=== PATIENT | female | born 1995 | race African-American/Black ===

== ENCOUNTER 2016-07-06 13:56 | Inpatient (IN) | payer OTHER ==
[~2016-07-06] VITALS: Ht 165.1 cm; Wt 65.3 kg
[2016-07-06] MEDS ORDERED: DULO30CA2 PO (14:36)
[2016-07-06] MEDS ORDERED: RIT5 PO (14:36)
[2016-07-06] MEDS ORDERED: QUET25TA PO (14:36)
[2016-07-06 16:21] LABS: BASOPHILS # (AUTO) 0.03 K/uL (0.00-0.20); BASOPHILS % (AUTO) 0.6 % (0.0-2.0); EOSINOPHILS # (AUTO) 0.06 K/uL (0.00-0.70); EOSINOPHILS % (AUTO) 1.24 % (1.0-6.0); LYMPHOCYTES # (AUTO) 2.2 K/uL (1.0-4.8); LYMPHOCYTES % (AUTO) 42.8 % (22.0-44.0); MEAN CORPUSCULAR HEMOGLOBIN 26.1 pg (26.0-34.0); MEAN CORPUSCULAR HGB CONC 32.6 G/dL (31.0-37.0); MEAN CORPUSCULAR VOLUME 80 fL (80-100); MONOCYTES # (AUTO) 0.2 K/uL (0.1-1.0); MONOCYTES % (AUTO) 4.8 % (2.0-9.0); NEUTROPHILS # (AUTO) 2.5 K/uL (1.8-7.7); NEUTROPHILS % (AUTO) 50.5 % (40.0-70.0); PLATELET COUNT (AUTO) 298 K/uL (150-450); RED BLOOD CELL COUNT(AUTO) 5.38 MIL/uL (4.00-5.20); RED CELL DISTRIBUTION WIDTH 14.5 % (11.5-14.5)
[2016-07-06 16:33] LABS: ANION GAP 15 mmol/L (8-16); CALCIUM, TOTAL 9.1 mg/dL (8.8-10.5); CARBON DIOXIDE 23 mmol/L (22-29); CHLORIDE 105 mmol/L (98-107); CREATININE 0.83 mg/dL (0.60-1.30); GLOMERULAR FILTR. RATE CALC > 60 mL/min (>60); POTASSIUM 3.8 mmol/L (3.5-5.1); SODIUM SERUM 143 mmol/L (136-145); UREA NITROGEN, BLOOD 7 mg/dL (7-18)
[2016-07-06 16:40] LABS: ALANINE AMINOTRANSFERASE 16 U/L (12-78); ALBUMIN 4.4 g/dL (3.4-5.0); ASPARTATE AMINOTRANSFERASE 17 U/L (15-37); BILIRUBIN,TOTAL 0.5 mg/dL (0.1-1.0); TOTAL PROTEIN, SERUM 8.6 g/dL (6.4-8.2)
[2016-07-06 16:42] LABS: ACETAMINOPHEN < 2 mcg/mL (10-30)
[2016-07-06] MEDS ORDERED: HALOPERIDOL 5 MG TABLET PO PRN (16:45)
[2016-07-06] MEDS ORDERED: ZOLPIDEM TARTRATE 10 MG TABLET PO PRN (16:45)
[2016-07-06 16:52] LABS: SALICYLATE < 2.8 mg/dL (2.8-20.0)
[2016-07-06 18:15] VITALS: BP 126/81
[2016-07-06] MEDS: LORazepam 2 MG TABLET PO PRN (23:03)
[2016-07-07 08:30] VITALS: BP 108/59
[2016-07-07] MEDS: LORazepam 2 MG TABLET PO PRN (09:38)
[2016-07-07] MEDS ORDERED: INFLUENZA VIRUS VACCINE QVS 2016-17 (3YR+)/PF 60 MCG/0.5 ML SYRINGE IM ONE (12:30)
[2016-07-07 16:21] VITALS: BP 109/63
== END 2016-07-07 17:30 | disposition short-term general hospital (02) | DRG 885 ==
LOC: EMS 13:58 → EEVIPCON 13:58 → B3A 16:46
PROVIDERS: ADMIT Psychiatry & Neurology Psychiatry; ATTEND Psychiatry & Neurology Psychiatry
DX: F33.2 Major depressive disorder, recurrent severe without psychotic features (principal); R45.851 Suicidal ideations; F60.3 Borderline personality disorder; J45.909 Unspecified asthma, uncomplicated; Z91.14 Patient's other noncompliance with medication regimen; Z28.21 Immunization not carried out because of patient refusal; Z59.0 Homelessness; Z62.819 Personal history of unspecified abuse in childhood; Z91.5 Personal history of self-harm; Z80.1 Family history of malignant neoplasm of trachea, bronchus and lung
CPT/HCPCS: 99285; G0480; G0481